=== PATIENT | male | born 1990 | race Hispanic/Latino ===

== ENCOUNTER 2021-07-29 15:17 | Emergency (ER) | payer OTHER, SELFPAY ==
[2021-07-29 15:18] VITALS: BP 109/62; PULSE 62; RESP 18; TEMP 36.1; O2SAT 100; BMI 20.5
--- NOTE | 2021-07-29 15:51 | EDS_ITS ---
HPI History of Present Illness HPI Narrative: Patient presents with injury to his left hand that he sustained just prior to arrival. His history and physical is mildly limited secondary to language barrier. He mainly speaks [place]. He has a coworker at the bedside who he wishes to translate for him. He was cutting the [employer] out of meet and accidentally stabbed his left hand. He sustained a through and through laceration to the palm of his hand and through the base of his third digit on his left hand. He is right-hand dominant. He is unsure of his last tetanus immunization. He does have prior injury to his left hand where he cannot close the gap between his third and fourth digits completely. This is chronic for him. He presents because of the pain from the stab wound/puncture wound to his left hand that is through and through. Chief Complaint: Laceration Narrative Tetanus Immunization: Unknown [facility] Medical History Laceration of right index finger Home Medications cephalexin 500 mg capsule 500 mg PO TID #15 cap 06/08/21 [Rx Last Taken Unknown] Allergy/AdvReac Type Severity Reaction Status Date / Time No Known Allergies Allergy Verified 07/29/21 15:19 Family History unable to obtain Social History Smoking Status: Never smoker ROS ROS ED ROS Narrative Constitutional: No fever, no chills. HEENT: No sore throat. No neck pain. No loss of vision. No rhinorrhea. Cardiovascular: No chest pain. No palpitations. No pedal edema. Respiratory: No cough, no shortness of breath. Abdominal: No abdominal pain. No nausea. No vomiting. Genitourinary: No dysuria. No hematuria. Musculoskeletal: Left hand pain secondary to puncture wound with knife/through a nd through. Neurologic: No headaches. No dizziness. No lightheadedness. Skin: No rash. No change in color. Psychiatric: No depression. No anxiety. EXAM Physical Exam Narrative Exam Narrative: Afebrile. Vital signs noted. HEENT: Normocephalic. Atraumatic. PERRL, EOMI. Neck soft and supple. No point tenderness or step off. Cardiovascular: Regular rate and rhythm. No murmurs, rubs, or gallops appreciated. Respiratory: No tachypnea. Lungs clear to auscultation bilaterally. Gastrointestinal: Abdomen soft, nontender, with normoactive bowel sounds. No rebound or guarding. Neurological: Awake. Alert. Nonfocal, nonlateralizing. Skin: No rash. Normal color. No pallor. Musculoskeletal: No pedal edema. Full range of motion extremities. +1.5 cm laceration to the palm of his hand in the webspace between the third and fourth digit of his left hand. There is also a laceration at the base of his finger on the medial aspect of his third digit that is also approximately 1.5 cm long. No active bleeding. He is able to adduct and abduct his fingers. He has good capillary refill. He is able to make a fist, and extend his fingers. 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 Const Vital Signs: 07/29/21 15:18 Temperature 97 F L Temperature Source Temporal Pulse Rate 62 Respiratory Rate 18 Blood Pressure 109/62 Blood Pressure Mean 77 Pulse Ox 100 Oxygen Delivery Method Room Air MDM MDM MDM Narrative Medical decision making narrative: He was administered an Adacel immunization. I will obtain x-rays of the left hand. I will perform laceration repair. Lidocaine 1% will be used as a local anesthetic. X-ray shows no evidence of foreign body, no avulsion fracture/acute fracture. His wound was cleansed extensively. He states this is a through and through laceration as it happened with only one stab wound. The laceration on his left palm is approximately 1.5 cm and was closed using 4 sutures, simple interrupted with four-point 0 nylon/Ethilon. The 1.5 cm laceration at the base of his left medial index finger was also closed using 4 simple interrupted sutures with four-point 0 Ethilon. He was informed of the risk of infection and scarring and acknowledges understanding. After wound closure, he still has range of motion with flexion and extension of his fingers including abduction and abduction, at his baseline. He will return to work tomorrow, he was given today off, the day of his injury. He is to keep the area clean, dry, and covered. He will have the sutures rem ashli by the now clinic in 7 to 10 days. I feel he can be discharged safely home with follow-up. Return instructions to the emergency department were reviewed. Disposition is discharged home in stable condition. Discharge Plan Triage Chief Complaint: Laceration ED Provider: Satya Mitchell Dx/Rx/DC Orders Clinical Impression: Puncture wound of hand, left, Laceration of left middle finger Prescriptions: No Action cephalexin 500 mg capsule 500 mg PO TID Qty: 15 RF: 0 Stand Alone Forms: Work Status Form Primary Care Provider: Care Physician,No Primary Referrals: NOT,DEFINED [NON-STAFF] - Clinic,[facility] [NON-STAFF] - 10 Day for suture removal
[2021-07-29] MEDS: Diphth,Pertuss(Acell),Tet Vac 0.5 ML Vial IM (16:12)
[2021-07-29] MEDS: Lidocaine 1% (20 ml mdv) 20 ML Vial INFILT (16:14)
--- NOTE | 2021-07-29 16:41 | RAD_ITS ---
STUDY: XR Hand Min 3 Views REASON FOR EXAM: Male, 31 years old. PAIN TECHNIQUE: XR Hand Min 3 Views COMPARISON: None. FINDINGS: Normal radiocarpal articulation. Normal distal radioulnar joint. Normal visualized carpal bones. Normal carpal articulations Normal carpometacarpal articulation of the thumb. Normal second through fifth carpometacarpal joints. Normal metacarpi. Normal metacarpophalangeal joint of the thumb. Normal interphalangeal joint of the thumb. Normal proximal and distal phalanges of the thumb. Normal metacarpophalangeal joints of the second through fifth fingers. Normal proximal and distal interphalangeal joints of the second through fifth fingers. Normal phalanges of the second through fifth fingers. The soft tissue structures are unremarkable. RAD/Hand Min 3 Views IMPRESSION: There are no acute findings. Electronically Signed: Alexis Arshad MD at 17:07 EST ,
[2021-07-29] MEDS: HYDROcodone Bitartrate/Apap 5/325 Tablet PO (16:57)
[2021-07-29 17:37] VITALS: BP 117/87; PULSE 64; RESP 18; TEMP 36.9; O2SAT 99
== END 2021-07-29 17:42 | disposition home or self-care (01) ==
LOC: ED 17:24
PROVIDERS: Emergency Provider Emergency Medicine; Visit Provider Emergency Medicine
DX: S61.432A Puncture wound without foreign body of left hand, initial encounter (principal); S61.213A Laceration without foreign body of left middle finger without damage to nail, initial encounter; W26.0XXA Contact with knife, initial encounter; Y93.89 Activity, other specified; Y99.0 Civilian activity done for income or pay
CPT/HCPCS: 12002; 73130; 90471; 90715; 99283